=== PATIENT | male | born 1965 | race Caucasian/White ===

== ENCOUNTER 2016-12-19 21:22 | Observation (INO) | payer BC ==
[~2016-12-19] VITALS: Ht 182.9 cm; Wt 99.8 kg
--- NOTE | ~2016-12-19 | EKG ---
[address] [place] [address] ELECTROCARDIOGRAM REPORT Name: YANCY CHASE Room #: 212-P [facility] M.R.#: [id number] Admission: 12/19/16 Attend Phys: Demario Rene DO Discharge: 12/20/16 Date of : 61 Report #: [id number] THIS REPORT FOR: //name// [facility] ED Test Date: 2016-12-19 Test Time: 21:27:03 Pat Name: YANCY CHASE Department: Room: 212 Gender: M [employer]ging Machine Operator: [email or web address] : 1965 Requested By: Danish Maza Order Number: [id number] MD: Marcus Sprague Measurements Intervals [place] Rate: 77 P: 59 SD: 166 QRS: -12 QRSD: 94 T: 15 QT: 390 QTc: 442 Interpretive Statements Sinus rhythm RSR' in V1 or V2, right VCD Baseline wander in lead(s) V1 Compared to ECG 11/22/2013 11:31:43 no significant change was found Electronically Signed On 12-21-2016 8:02:30 CDT by Marcus Sprague [email or web address] <ELECTRONICALLY SIGNED> By: Marcus Sprague MD, [facility] 12/21/16801 26 26 Marcus Sprague MD, [facility] /EPI
[~2016-12-19 21:22] MED LIST: LEVAQUIN 500 M500 M2 PO; LORTAB 10 MG-3473 ML PO
[2016-12-19 21:24] VITALS: BP 150/90
[2016-12-19 21:57] LABS: ABSOLUTE NEUTROPHILS 5.5 thou/uL (1.4-8.2); BASOPHILS 0.5 % (0.0-2.0); EOSINOPHILS 1.9 % (0.0-3.0); HEMATOCRIT 42.9 % (42.0-52.0); HEMOGLOBIN 14.4 gm/dL (14.0-18.0); MCH 29.8 pg (26.0-34.0); MCHC 33.5 g/dL (28.0-37.0); MCV 88.9 fL (80.0-100.0); MONOCYTES 7.3 % (1.0-8.0); PLATELET COUNT 215 thou/uL (150-400); POLYS 47.3 % (36.0-66.0); RBC 4.83 mil/uL (4.50-6.00); RDW 12.7 % (10.5-14.5); WBC 11.6 thou/uL (4.0-11.0)
[2016-12-19 21:59] LABS: MANUAL DIFF NO
[2016-12-19 22:03] LABS: ANION GAP 8 mmol/L (7-16); BUN 22 mg/dL (7-18); CALCIUM 9.1 mg/dL (8.5-10.1); CHLORIDE 104 mmol/L (98-107); CO2 28 mmol/L (21-32); CREATININE 1.4 mg/dL (0.7-1.3); GLUCOSE 102 mg/dL (74-106); SODIUM 140 mmol/L (136-145)
[2016-12-19 22:13] LABS: APTT 29.8 Seconds (24.5-32.8); PROTIME 10.4 Seconds (9.3-11.4)
[2016-12-19 22:25] LABS: ALBUMIN 3.8 g/dL (3.4-5.0); ALKALINE PHOSPHATASE 78 U/L (46-116); CK-MB MASS 2.2 ng/mL (<0.5-3.6); NT-PRO BRAIN NAT PEPTIDE 24 pg/mL (<300); SGOT 23 U/L (15-37); SGPT 33 U/L (30-65); TOTAL BILIRUBIN 0.4 mg/dL (<0.1-1.0); TOTAL PROTEIN 7.1 g/dL (6.4-8.2); TROPONIN-I < 0.04 ng/mL (<0.04-0.07)
[2016-12-19 23:03] VITALS: BP 137/82
[2016-12-19 23:20] VITALS: BP 146/53
[2016-12-20 04:36] VITALS: BP 130/80
[2016-12-20 04:58] LABS: HEMATOCRIT 40.4 % (42.0-52.0); HEMOGLOBIN 13.7 gm/dL (14.0-18.0); MCH 29.8 pg (26.0-34.0); MCHC 33.9 g/dL (28.0-37.0); MCV 87.9 fL (80.0-100.0); RBC 4.6 mil/uL (4.50-6.00); RDW 12.6 % (10.5-14.5); WBC 9.4 thou/uL (4.0-11.0)
[2016-12-20 05:16] LABS: ANION GAP 7 mmol/L (7-16); BUN 23 mg/dL (7-18); CALCIUM 8.8 mg/dL (8.5-10.1); CHLORIDE 107 mmol/L (98-107); CHOLESTEROL 170 mg/dL (<200); CO2 28 mmol/L (21-32); CREATININE 1.1 mg/dL (0.7-1.3); GLUCOSE 90 mg/dL (74-106); HDL CHOLESTEROL 38 mg/dL (>40); LDL CHOLESTEROL 112 mg/dL (<100); POTASSIUM 4.1 mmol/L (3.5-5.1); SODIUM 142 mmol/L (136-145); TC:HDL 4.5 Ratio (Not establshd); TRIGLYCERIDE 100 mg/dL (<150); TROPONIN-I < 0.04 ng/mL (<0.04-0.07); VLDL 20 mg/dL (<40)
[2016-12-20 05:17] LABS: SERUM ASSESSMENT Clear
[2016-12-20 08:06] VITALS: BP 128/87
[2016-12-20] MEDS ORDERED: COLCHICINE0.6 M1 PO (09:13)
[2016-12-20] MEDS ORDERED: IBUPROFEN 600600 M1 PO (09:15)
[2016-12-20 10:49] VITALS: BP 128/87
== END 2016-12-20 11:36 | disposition home or self-care (01) ==
LOC: ER 21:22 → 2N 22:34 → EROBS 22:34 → 2N 23:04
PROVIDERS: Emergency Medicine; Nurse Practitioner Family
DX: R07.89 Other chest pain (principal); N19 Unspecified kidney failure; E78.5 Hyperlipidemia, unspecified; I51.7 Cardiomegaly

== ENCOUNTER 2018-08-30 15:02 | Emergency (ER) | payer BC ==
[~2018-08-30] VITALS: Ht 180.3 cm; Wt 88.5 kg
[~2018-08-30 15:02] MED LIST changes: +COLCHICINE0.6 M1 PO; +IBUPROFEN 600600 M1 PO
[2018-08-30] MEDS ORDERED: NORCO 5-325 TA1 EACH PO (16:14)
[2018-08-30 16:33] VITALS: BP 152/74
== END 2018-08-30 16:25 | disposition home or self-care (01) ==
LOC: ER 15:02
DX: S42.291A Other displaced fracture of upper end of right humerus, initial encounter for closed fracture (principal); W00.0XXA Fall on same level due to ice and snow, initial encounter; Y92.89 Other specified places as the place of occurrence of the external cause; Y93.89 Activity, other specified; Y99.8 Other external cause status

== ENCOUNTER → 2020-07-30 | Outpatient (CLI) | payer BC ==
[~2020-07-30] MED LIST changes: +NORCO 5-325 TA1 EACH PO
== END ==
LOC: SJCVCIMAG 09:34
PROVIDERS: ATTEND Internal Medicine
DX: R06.00 Dyspnea, unspecified (principal); E78.5 Hyperlipidemia, unspecified; I11.0 Hypertensive heart disease with heart failure; I50.30 Unspecified diastolic (congestive) heart failure